=== PATIENT | female | born 1990 | race Hispanic/Latino ===

== ENCOUNTER 2024-04-20 15:44 | Emergency (ER) | payer OTHER ==
[~2024-04-20] VITALS: Ht 152.4 cm; Wt 79.4 kg
[2024-04-20 16:04] VITALS: PULSE 63; RESP 18; TEMP 97.9; O2SAT 98
[2024-04-20] MEDS ORDERED: NAPROXEN250 MG PO (16:09)
== END 2024-04-20 16:20 | disposition home or self-care (01) ==
LOC: ER 16:00
DX: M54.2 Cervicalgia (principal); M54.50 Low back pain, unspecified; V43.52XA Car driver injured in collision with other type car in traffic accident, initial encounter; Y92.488 Other paved roadways as the place of occurrence of the external cause
CPT/HCPCS: 99284